=== PATIENT | male | born 1955 | race Caucasian/White ===

== ENCOUNTER → 2020-07-19 | Emergency (ER) | payer OTHER ==
[~2020-07-19] VITALS: Ht 180.3 cm; Wt 88.5 kg
[~2020-07-19] MED LIST: ASA81 MG PO; CARVEDILOL3.125 MG PO; FORTAMET500 MG PO; LIPITOR40 M1 PO; VASOTEC2.5 MG PO
== END | disposition home or self-care (01) ==
LOC: ER 12:53 → CPU-OBS 13:36 → ER 13:36
DX: R07.89 Other chest pain (principal)
CPT/HCPCS: G0378; G0379; 93005